=== PATIENT | female | born 1935 | race African-American/Black ===

== ENCOUNTER 2021-02-18 10:18 | Emergency (ER) | payer OTHER ==
[~2021-02-18] VITALS: Ht 160 cm; Wt 58.1 kg
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
[2021-02-18 15:14] VITALS: BP 128/108
== END 2021-02-18 15:14 ==
LOC: ER 10:18
DX: S52.515A Nondisplaced fracture of left radial styloid process, initial encounter for closed fracture (principal); I11.0 Hypertensive heart disease with heart failure; I50.9 Heart failure, unspecified; Z91.011 Allergy to milk products; Z88.0 Allergy status to penicillin; Z91.013 Allergy to seafood; W18.30XA Fall on same level, unspecified, initial encounter; Y93.89 Activity, other specified; Y92.128 Other place in nursing home as the place of occurrence of the external cause; Y99.9 Unspecified external cause status